=== PATIENT | male | born 1950 | race Hispanic/Latino ===

== ENCOUNTER 2018-04-09 17:01 | Inpatient (IN) | payer MEDICARE, OTHER ==
[2018-04-09 18:02] LABS: CKMB 5.3 ng/mL (0-6.6); Troponin I 0.054 ng/mL (< 0.028)
--- NOTE | 2018-04-09 18:14 | PDOC.FPRHP ---
- History of Present Illness Chief Complaint: Nausea, malaise History of Present Illness: Patient transferred from [facility] ED after seen by PCP Dr. Arias in clinic. Reports N/V, "feeling bad all over". Patient says symptoms began Monday. Has had decreased PO intake and urine output since that time. Denies dysuria, cough , difficulty breathing, CP, abdominal pain. Reports subjective fever and watery diarrhea x3. Cirrhosis with weekly paracentesis on Fridays in [place]. Last one done Monday. Was reportedly tachycardic at that time but refused to go to ED. ED Course: 2.5 L bolus, vanc, zosyn - Allergies/Adverse Reactions Allergies Allergy/AdvReac Type Severity Reaction Status Date / Time No Known Allergies Allergy Verified 04/09/18 23:42 - Home Medications Medication Instructions Recorded Confirmed Type Doxazosin [Cardura] 2 mg PO HS 04/10/18 04/10/18 History Ferrous Sulfate 324 mg PO DAILY 04/10/18 04/10/18 History Furosemide 04/10/18 History Furosemide 40 mg PO DAILY 04/10/18 04/10/18 History Gabapentin 300 mg PO HS 04/10/18 04/10/18 History Insulin Glargine,Hum.Rec.Anlog 15 units SQ QAM 04/10/18 04/10/18 History [Lantus] Lactulose 30 ml PO TID 04/10/18 04/10/18 History Metoprolol Tartrate [Lopressor] 25 mg PO BID 04/10/18 04/10/18 History Pantoprazole Sodium 40 mg PO HS 04/10/18 04/10/18 History Spironolactone 50 mg PO DAILY 04/10/18 04/10/18 History sitaGLIPtin Phosphate [Januvia] 25 mg PO DAILY 04/10/18 04/10/18 History - History PMHx: cirrhosis with ascites, Hepatitis C s/p treatment, hepatocellular carcinoma, CVA in 1995, T2DM on insulin, HTN, CKD PSHx: TURP, ear, tonsils, pacemaker FHx: mother and grandma cirrhosis Social: Quit alcohol and tobacco in 2016. 16 pack year hx. Previous drug use "long time ago" - Review of Systems General: reports: fever/chills, weight/appetite/sleep changes, fatigue ENT: denies: nasal congestion, rhinorrhea Respiratory: denies: cough, shortness of breath Cardiovascular: denies: chest pain, palpitation, edema Gastrointestinal: reports: nausea, vomiting, diarrhea. denies: abdominal pain Genitourinary: denies: dysuria, discharge Skin: denies: rashes, lesions Musculoskeletal: denies: pain, tenderness Neurological: reports: weakness. denies: syncope - Vital signs BP: 102/87 HR: 98 RR: 22 Tmax: 97.5 Pox: 98% Wt: 74 kg - Physical Exam Constitutional: other (general malaise, spitting up in bag) HEENT: normocephalic and atraumatic, PERRLA, EOMI, conjunctiva clear, MMM, oropharynx clear Neck: FROM, trachea midline Heart: RRR, normal S1/S2, no edema, other (tachycardia) Lungs: CTAB, no respiratory distress, good air movement Abdomen: non-tender, bowel sounds present, other (ascited with + fluid wave) Musculoskeletal: normal structure, normal tone Neurological: no focal deficit Skin: no rash/lesions, good turgor, capillary refill <2 seconds Heme/Lymphatic: no unusual bruising or bleeding FMR H&P: Results - Labs Lab results: Lactic Acid 2.4 mmol/L (0.5-2.2) H 04/09/18 17:28 CK-MB (CK-2) 5.3 ng/mL (0-6.6) 04/09/18 17:28 FMR H&P: A/P - Problem List (1) Sepsis Current Visit: Yes Status: Acute Code(s): A41.9 - SEPSIS, UNSPECIFIED ORGANISM Qualifiers: Sepsis type: Streptococcus group A Qualified Code(s): A40.0 - Sepsis due to streptococcus, group A (2) UTI (urinary tract infection) Current Visit: Yes Status: Acute (3) Hypovolemia Current Visit: Yes Status: Acute Code(s): E86.1 - HYPOVOLEMIA (4) ANDREAS (acute kidney injury) Current Visit: Yes Status: Acute Code(s): N17.9 - ACUTE KIDNEY FAILURE, UNSPECIFIED (5) CKD (chronic kidney disease) Current Visit: Yes Status: Acute Code(s): N18.9 - CHRONIC KIDNEY DISEASE, UNSPECIFIED (6) Hyperkalemia Current Visit: Yes Status: Acute Code(s): E87.5 - HYPERKALEMIA (7) Hyponatremia Current Visit: Yes Status: Acute Code(s): E87.1 - HYPO-OSMOLALITY AND HYPONATREMIA (8) Normocytic anemia Current Visit: Yes Status: Acute Code(s): D64.9 - ANEMIA, UNSPECIFIED (9) Cirrhosis of liver Current Visit: Yes Status: Acute Code(s): K74.60 - UNSPECIFIED CIRRHOSIS OF LIVER (10) Insulin dependent diabetes mellitus Current Visit: Yes Status: Acute Code(s): E11.9 - TYPE 2 DIABETES MELLITUS WITHOUT COMPLICATIONS; Z79.4 - 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 Sepsis 2/2 likely UTI - tachycardia, tachypnea - considering no resp complaints, neg CXR, no abdominal pain, afebrile, no leukocytosis, SBP less likely, UTI most likely source at this time. Patient with N/V/D, gastroenteritis with volume depletion could be etiology as well. - will get abdominal u/s for further evaluation - lactic acidosis improving, 3.2->2.46 - s/p 2.5 L fluid resuscitation. continue IVF LR @ 100. Will use caution considering h/o cirrhosis - given vanc/zosyn in [facility] ED (04/09) - Will start rocephin in am (04/10) - Ucx, Bcx in [facility] pending - procalcitonin pending Hypovolemia - treatment as above ANDREAS on CKD - Cr 4.3 on admission (2.8 on 02/06) - IVF as above - monitor on BMP for improvement - hold home lasix - caution with nephrotoxic meds Hyperkalemia - hold home spironolactone - ordered kayexalate - no EKG changes - recheck in am Hyponatremia - at baseline during previous admissions - am BMP Normocytic anemia - Hgb 10.9 - on iron supplements at home Cirrhosis s/p treatment for Hep C - history of HCC - gets weekly paracentesis on Fridays in [place] - INR 1.4 IDDM2 - accuchecks, SSI - On januvia and lantus 15 qam at home HTN - on metoprolol at home. patient tachycardic, will continue Diet: CC Ppx: SCDs Code: FULL Dispo: admit to telemetry, inpatient FMR H&P: Upper Level - Pertinent history 68 yo HM with a PMH of HCV/HCC cirrhosis and HTN presenting for malaise over the last week. Pt is noted to go to [place] for weekly paracenteses and was found to be tachycardic during his last session on Friday 04/06. He was urged to go to the ER at that time but refused. Pt visited PCP's office this AM for acute visit with similar complaints and was found to be tachycardic to 120s with concern for acute infection. Pt was sent to [facility] ER and subsequently transferred here for higher level of care. Pt c/o muscle aches, malaise, nausea, vomiting, palpitations, and poor PO intake. Pt received 2L of NS and vancomycin & zosyn at outside ER. - Pertinent findings Gen: well developed in NAD CV: tachycardic, regular rhythm Resp: CTAB Abd: mild distension with fluid wave, NTTP - Plan Date/Time: 04/09/181813 I, Rogelio Quinteros MD PGY3, have evaluated this patient and agree with findings/ plan as outlined by buyer internship resident. Pertinent changes/additions are listed here. 1. Sepsis 2/2 UTI -Pt presented with tachycardia and tachypnea and UA concerning for UTI. Blood and urine cultures obtained at outside facility. PCP was also initially concerned about SBP with pt's history of cirrhosis and weekly paracenteses. -Will transition pt's abx coverage to Ceftriaxone. -Obtain procalcitonin. -Trend lactic acid which has already improved after initial fluid resuscitation. -Obtain abdominal US to further assess ascites and possibility of paracentesis. -Continue with gentle IVF. 2. Moderate hypovolemia 2/2 above -IVF. Consider administration of albumin if pt does not improve. 3. ANDREAS on CKD3 2/2 number 2 -Likely prerenal due to above. -IVF and consider albumin if GFR does not improve. 4. Lactic acidosis 2/2 above -per above Home medications will be continued for chronic medical conditions. FULL code PPx: SCDs for VTE, no GI indicated disposition: Admit to inpatient telemetry for anticipated length of stay greater than two midnights, pending clinical course. Attending Addendum - Attending Addendum Date/Time: 04/09/18 2068 I personally evaluated the patient and discussed the management with Dr. Berg I agree with the History, Examination, Assessment and Plan documented above with any addition or exceptions noted below- 68 yo old male with h/o cirrhosis, DM, HTN presented c/o malaise since last Monday. He has had some N/V/D since then. Poor appetite. Has weekly paracenteses in [place] and was sent to ER then but refused admission at that. Followed up with PCP today who sent him to ER for evalaution and now subsequent admission. Denies any URI symptoms, abd pain. Denies any ill contacts. PMH/PSH/All/Meds reviewed and agree with resident's documentation. T97.5, BP 102/87, P98 RR 22 98% on RA Exam repeated by me and significant for abd- nontender; (+) fluid wave; Lungs- CTA b/l; CV- tachycardic. Labs: WBC=6.0, H/H=10.9/36, Kpd=567, Pf=904, K=5.5, Yc=100, CO2=18 , BUN/Cr=58/4.38, Lhdj=027, AST/ALT=37/13; lactic acid= 3.2=>2.4=>2.0. U/A= sm blood, sm leuko est, WBC=21-50, 3+ bacteria A/P: 1) Sepsis secondary to UTI- Admit to tele. Continue Vanc and Zosyn. Blood and urine cultures pending. 2) ANDREAS - received bolus in ER; monitor urine output and recheck labs in AM. 3) DM- continue home meds; monitor accuchecks.
[2018-04-09] MEDS ORDERED: Ondansetron PF 4 MG/2 ML Vial ONE (20:34)
[2018-04-09 20:42] LABS: Troponin I 0.058 ng/mL (< 0.028)
[2018-04-09] MEDS ORDERED: HumaLOG 300 UNITS/3 ML VIAL SC PRN (23:12)
[2018-04-09] MEDS ORDERED: Ondansetron ODT 4 MG TAB PO PRN (23:12)
[2018-04-09] MEDS ORDERED: Dextrose 50% Abboject 50 ML SYRINGE SLOW IVP PRN (23:12)
[2018-04-09] MEDS ORDERED: Acetaminophen 325 MG TAB PO PRN (23:12)
[2018-04-09] MEDS ORDERED: Dextrose 5% in Water 1,000 ML IV PRN (23:12)
[2018-04-09] MEDS ORDERED: Lactated Ringer's 1,000 ML IV SCH (23:12)
[2018-04-09] MEDS ORDERED: Ondansetron PF 4 MG/2 ML Vial IVP PRN (23:12)
[2018-04-09 23:31] LABS: Troponin I 0.059 ng/mL (< 0.028)
[2018-04-10] MEDS: Lactated Ringer's 1,000 ML IV SCH ×6 (00:29→20:42)
[2018-04-10 06:08] LABS: Anion Gap 18 mmol/L (10-20); BUN (Urea Nitrogen) 58 mg/dL (8.4-25.7); Calc. Creatinine Clearance 18 mL/min (70-130); Calcium 8.3 mg/dL (7.8-10.44); Carbon Dioxide 17 mmol/L (23-31); Chloride 106 mmol/L (98-107); Estimated GFR-MDRD 15; Glucose 91 mg/dL (80-115); Potassium 4.7 mmol/L (3.5-5.1); Sodium 136 mmol/L (136-145)
--- NOTE | 2018-04-10 06:30 | PDOC.FM ---
- Subjective Subjective: Mr. Ryan is resting comfortably in bed, he denies pain or SOB. - Objective Vital Signs & Weight: Vital Signs (12 hours) Temp Pulse Resp BP BP Pulse Ox 04/10/18 04:00 97.5 F L 129 H 20 107/76 96 04/09/18 23:15 97.7 F 125 H 22 H 132/98 H 94 L Weight Weight 72.631 kg Result Diagrams: 04/10/18 05:09 04/10/18 05:09 <Margarito Foley - Last Filed: 04/10/18 08:13> - Objective Vital Signs & Weight: Vital Signs (12 hours) Temp Pulse Resp BP Pulse Ox 04/10/18 08:00 97.8 F 18 L 18 120/82 98 Weight Admit Weight 72.631 kg Weight 72.631 kg I&O: 04/09/18 04/10/18 04/11/18 06:59 06:59 06:59 Intake Total 460 Balance 460 Result Diagrams: 04/10/18 05:09 04/10/18 05:09 <Radha Arias - Last Filed: 04/10/18 18:38> Phys Exam - Physical Examination Constitutional: NAD HEENT: moist MMs Respiratory: no wheezing, no rales, no rhonchi Cardiovascular: RRR, no significant murmur, no rub Gastrointestinal: soft, non-tender distended abdomen, +fluid wave Musculoskeletal: no edema Neurological: moves all 4 limbs Psychiatric: normal affect Skin: no rash <Margarito Foley - Last Filed: 04/10/18 08:13> Dx/Plan (1) ANDREAS (acute kidney injury) Code(s): N17.9 - ACUTE KIDNEY FAILURE, UNSPECIFIED Status: Acute (2) CKD (chronic kidney disease) Code(s): N18.9 - CHRONIC KIDNEY DISEASE, UNSPECIFIED Status: Acute (3) HTN (hypertension) Code(s): I10 - ESSENTIAL (PRIMARY) HYPERTENSION Status: Acute (4) Hyperkalemia Code(s): E87.5 - HYPERKALEMIA Status: Acute (5) Hyponatremia Code(s): E87.1 - HYPO-OSMOLALITY AND HYPONATREMIA Status: Acute (6) Hypovolemia Code(s): E86.1 - HYPOVOLEMIA Status: Acute (7) Sepsis Code(s): A41.9 - SEPSIS, UNSPECIFIED ORGANISM Status: Acute Qualifiers: Sepsis type: Streptococcus group A Qualified Code(s): A40.0 - Sepsis due to streptococcus, group A (8) UTI (urinary tract infection) Status: Acute - Plan Plan: Sepsis 2/2 likely UTI - tachycardia, tachypnea - considering no resp complaints, neg CXR, no abdominal pain, afebrile, no leukocytosis, SBP less likely, UTI most likely source at this time. Patient with N/V/D, gastroenteritis with volume depletion could be etiology as well. - will get abdominal u/s for further evaluation - lactic acidosis improving, 3.2->2.46 - s/p 2.5 L fluid resuscitation. continue IVF LR @ 100. Will use caution considering h/o cirrhosis - given vanc/zosyn in [facility] ED (04/09) - Will start rocephin in am (04/10) - Ucx, Bcx in [place] pending - procalcitonin pending Hypovolemia - treatment as above - slow bolus, consider albumin infusion ANDREAS on CKD - Cr 4.3 on admission (2.8 on 02/06) - IVF as above - monitor on BMP for improvement - hold home lasix - caution with nephrotoxic meds Hyperkalemia, resolved - hold home spironolactone, ordered kayexalate - no EKG changes - monitor Hyponatremia - at baseline during previous admissions - am BMP Normocytic anemia - Hgb 10.9 - on iron supplements at home Cirrhosis s/p treatment for Hep C - history of HCC - gets weekly paracentesis on Fridays in [place] - INR 1.4 IDDM2 - accuchecks, SSI - On januvia and lantus 15 qam at home HTN - on metoprolol at home. patient tachycardic, will continue Diet: CC Ppx: SCDs Code: FULL Dispo: admit to telemetry, inpatient <Margarito Foley - Last Filed: 04/10/18 08:13> Attending Addendum - Attending Addendum Date/Time: 04/10/18 0967 I personally evaluated the patient and discussed the management with Dr. Foley. I agree with the History, Examination, Assessment and Plan documented above with any addition or exceptions noted below. The patient states that he is feeling a little better today. He is less tired. Will continue IV fluids. Pt with ANDREAS on CKD. Appreciate nephrology recs. Will monitor fluid status carefully. Tread creatinine. Awaiting cultures <Radha Arias - Last Filed: 04/10/18 18:38>
[2018-04-10 06:42] LABS: #Eosinphils 0.2 thou/uL (0.0-0.7); #Lymphocytes 0.5 thou/uL (1.20-3.40); #Monocytes 0.5 thou/uL (0.11-0.59); %Eosinophils 3.2 % (0.0-10.0); %Lymphocytes 10.4 % (21.0-51.0); %Monocytes 8.7 % (0.0-10.0); %Neutrophils 77.7 % (42.0-75.0); Anisocytosis SLIGHT = 6-15 cells (100X) (0-5/hpf); Hemoglobin 10.5 g/dL (14.0-18.0); MDiff Complete? YES; Mean Corpuscular HGB CONC 30.8 g/dL (32.0-36.0); Mean Corpuscular Volume 84.4 fL (78.0-98.0); Mean Platelet Volume 10.4 fL (7.4-10.4); PLT Morphology Comment Appears Decreased; Platelet Count 90 thou/uL (130-400); RBC Distribution Width 16.7 % (11.5-14.5); Red Blood Cell (RBC) Count 4.04 mill/uL (4.70-6.10); White Blood Cell (WBC) Count 5.2 thou/uL (4.8-10.8)
[2018-04-10] MEDS ORDERED: Furosemide 40 MG TAB PO SCH (09:00)
--- NOTE | 2018-04-10 09:03 | ULT ---
ABDOMEN ULTRASOUND: HISTORY: Nausea. Vomiting. Bloating. Cirrhosis. COMPARISON: None. TECHNIQUE: Utilizing a multihertz transducer, sonographic imaging of the abdomen is performed in the longitudina l and transverse plane. FINDINGS: There is evidence of ascites. Suboptimal evaluation of the IVC, aorta. Visualized pancreatic parenchyma is unremarkable.. There is heterogeneous echotexture of the liver with questionable nodularity of the hepatic margin. Correlate for cirrhotic changes. No obvious masses or intrahepatic biliary dilatation. Evaluation i s limited by overall hepatic heterogeneity. Main portal vein is patent. Right hepatic lobe measures 12.2 cm. Nodularity of the right kidney is nonspecific. Nonobstructing echogenic focus in the mid right middl e cortex measuring 0.5 cm. The right kidney measures 9.8 x 4.8 x 3.9 cm. There is no hydronephrosis . There is diffuse left renal cortical thinning. No hydronephrosis. The left kidney measures 4.2 x 8.6 x 4.3 cm. No sonographic evidence of cholelithiasis. Gallbladder wall thickness is at the upper limits of norm al. There is evidence of pericholecystic fluid; however, the presents of fluid may be secondary to g eneralized ascites. Negative Phillips's sign is reported. Common bile duct diameter is 0.6 cm. The spleen has a normal echotexture measuring 12.6 cm. There is perisplenic fluid. There is evidenc e for a small right-sided pleural effusion. IMPRESSION: 1. Bilateral renal cortical thinning. No evidence of hydronephrosis. 2. No definite sonographic evidence of cholecystitis. 3. Nodularity of the liver compatible with cirrhotic change. 4. Evidence of small amounts of ascites in the abdomen. 5. Small right-sided pleural effusion suspected. POS: [facility]
[2018-04-10] MEDS: Ferrous Sulfate 325 MG TAB PO SCH (10:02)
[2018-04-10] MEDS: Alogliptin 6.25 MG TAB PO SCH (10:02)
[2018-04-10] MEDS: Insulin Glargine 15 UNITS in Pre-Filled Syringe 1 EACH SC SCH (10:03)
[2018-04-10] MEDS: Metoprolol Tartrate 25 MG TAB PO SCH ×2 (10:04→20:38)
[2018-04-10] MEDS: cefTRIAXone\\ROCEPHIN 1 GM in Sodium Chloride 0.9% 100 ML IVPB SCH (10:05)
--- NOTE | 2018-04-10 10:50 | CON ---
DATE OF CONSULTATION: 04/10/2018 CONSULTING PHYSICIAN: . REASON FOR CONSULTATION: Acute kidney injury. REASON FOR ADMISSION: Not feeling well. HISTORY OF PRESENT ILLNESS: This is a 68-year-old male with a history of cirrhosis, hepatit is C, type 2 diabetes, hypertension, CKD, came to the hospital with not feeling well and was found to have possible sepsis and being treated. Nephrology consult for acute kidney injury. His creatinine runs usually around 1.7-2, was found to be 4.3, better to 4.06 with hydration. Patient has also had a history of cirrhosis and ascites and concerned about that. No shortness of breath reported. No n ausea, vomiting, chest pain reported. PAST MEDICAL HISTORY: Positive for cirrhosis, hepatitis C, hepatocellular carcinoma, CVA, type 2 seng betes, hypertension, and chronic kidney disease. PAST SURGICAL HISTORY: TURP, ear surgery, tonsillectomy, pacemaker placement. HOME MEDICATIONS: Include Januvia, spironolactone, Lantus, ferrous sulfate, Cardura, gabapentin, morris toprazole, furosemide, metoprolol. ALLERGIES: No known drug allergies. SOCIAL HISTORY: No smoking, alcohol, drugs. FAMILY HISTORY: No history of kidney disease. REVIEW OF SYSTEMS: The following complete review of systems was negative, unless otherwise mentione d in the HPI or below: Constitutional: Weight loss or gain, ability to conduct usual activities. S kin: Rash, itching. Eyes: Double vision, pain. ENT/Mouth: Nose bleeding, neck stiffness, pain, t enderness. Cardiovascular: Palpitations, dyspnea on exertion, orthopnea. Respiratory: Shortness o f breath, wheezing, cough, hemoptysis, fever, or night sweats. Gastrointestinal: Poor appetite, abd ominal pain, heartburn, nausea, vomiting, constipation, or diarrhea. Genitourinary: Urgency, freque ncy, dysuria, nocturia. Musculoskeletal: Pain, swelling. Neurologic/Psychiatric: Anxiety, depress ion. Allergy/Immunologic: Skin rash, bleeding tendency. PHYSICAL EXAMINATION: GENERAL: This is a thin-built male in no apparent distress. VITAL SIGNS: Temperature 97.8, pulse 90, respiratory rate 18, blood pressure 120/82. HEENT: Atraumatic, normocephalic. Oral mucosa is moist. NECK: Supple, no masses. CARDIOVASCULAR: S1 and S2 heard. Rate and rhythm regular. RESPIRATORY: Clear. GASTROINTESTINAL: Abdomen is soft. MUSCULOSKELETAL: A 1+ edema. DERMATOLOGIC: No skin rash. NEUROLOGIC: Alert and awake. PSYCHIATRIC: Mood and affect. LABORATORY: Hemoglobin is 10.5, potassium is 4.7, BUN is 58, creatinine is 4.06. ASSESSMENT AND PLAN: 1. Acute kidney injury on chronic kidney disease, stage 3, most likely from sepsis. Creatinine seem s to be better. I agree with avoiding nephrotoxins and holding spironolactone and diuretics and gent ly hydrate if tolerated. Could reduce later this evening. Continue antibiotics. 2. Edema, controlled. 3. Hypertension. 4. Mild anemia, most likely from cirrhosis . 5. Hepatorenal syndrome. Continue supportive care, avoid nephrotoxins. We will follow. No acute indication for dialysis. Thank you for the consult.
[2018-04-10] MEDS ORDERED: Metoprolol Tartrate 5 MG/5 ML VIAL IVP PRN (14:36)
[2018-04-10] MEDS: Gabapentin 300 MG CAP PO SCH (20:38)
[2018-04-10] MEDS ORDERED: Doxazosin 2 MG TAB PO SCH (21:00)
--- NOTE | 2018-04-10 21:53 | CON ---
DATE OF CONSULTATION: 04/10/2018 This is in addition to the note dictated by Stephanie Tello D.O. REASON FOR CONSULTATION: Tachycardia. HISTORY OF PRESENT ILLNESS: Mr. Ryan is a 69-year-old man. He was admitted to the hospital after he was found to be tachycardic. The patient was not aware of his heart racing, but his heart rate was found to be about 130 beats per minute and he was referred here for evaluation. He said he did not feel bad. No chest pain or pressure, no heaviness or squeezing. PAST MEDICAL HISTORY: The patient is unable to give much history, but we were able to piece together some of the following information. The patient has had a pacemaker placed some time between 2015 an d now. Looking at the previous chest x-rays, it was not present in 2016 and is present on this admis naila. He said it was placed at [facility] in [place]. He does not know the physician's name. He has a history of weak heart muscle with normal heart arteries on cardiac catheterization according to the patient. He was told that he may need heart surgery, but it would be "too high of a risk." He does not know w hat the surgery was being contemplated or advised. He is uncertain about all of that. He says he does recall being told that he has no coronary artery disease. The patient has a history of cirrhosis. He said he stopped drinking and smoking in 2015 when he was found to have a weak heart muscle. He has no chest pain or pressure. REVIEW OF SYSTEMS: Constitutional: No significant weight gain or loss. Vision: No changes. Heari ng: No changes. Pulmonary: No cough or wheezing. Gastrointestinal: No nausea, vomiting, diarrhea . Skin: No rashes. Neurologic: No unilateral weakness or numbness. Psychiatric: No unusual depr ession or anxiety. Hematologic: No unusual bruising. Genitourinary: No burning with urination. H e does have intermittent drainage of ascites. MEDICATIONS: He takes metoprolol, apparently from the medicine that he has with him is metoprolol 25 mg twice a day, recently increased to 50 mg twice a day, but did not help with heart rate. FAMILY HISTORY: Negative for heart disease at a young age. PHYSICAL EXAMINATION: GENERAL: This is a pleasant 68-year-old man, resting comfortably, in no distress. VITAL SIGNS: Blood pressure 120/80, pulse 130. It is regular. HEENT: Eyes, sclerae nonicteric. Mouth, mucous membranes moist. NECK: Supple, no lymphadenopathy. LUNGS: Clear. No wheezing, rales or rhonchi. CARDIAC: He is tachycardic. There is no murmur, rub or gallop. ABDOMEN: Soft, nontender, no hepatosplenomegaly. He is mildly distended. EXTREMITIES: No clubbing or cyanosis. There is no edema. PERTINENT LABORATORY AND X-RAY FINDINGS: The INR in 07/2017 was 1.4, creatinine is 4.06. Potassium is 4.7, it was 5.5 yesterday. The EKG reveals what sometimes looks like atrial fibrillation with a ventricular paced rhythm, some o ther type of atrial arrhythmia, atrial sensing, ventricular pacing. Chest x-ray shows cardiomegaly w ith some pulmonary vascular congestion. ASSESSMENT: 1. Tachycardia, most likely due to underlying atrial dysrhythmia. 2. Suspect cardiomyopathy. 3. Normal coronary arteries per patient. 4. Renal failure apparently taken spironolactone as an outpatient. PLAN: 1. Interrogate the device, consideration for reprogramming the VVI. 2. It will be problematic to cardiovert as he is unreliable to take anticoagulants and also severe l iver disease. 3. Echocardiogram once the heart rate is better controlled. 4. Avoid spironolactone. 5. Likely, we will use carvedilol long-term. Further care dictated by hospital course.
[2018-04-11 05:55] LABS: INR-International Normal Ratio 1.5
[2018-04-11 06:04] LABS: #Basophils 0.1 thou/uL (0.0-0.2); #Eosinphils 0.2 thou/uL (0.0-0.7); #Lymphocytes 0.5 thou/uL (1.20-3.40); #Monocytes 0.4 thou/uL (0.11-0.59); #Neutrophils 2.2 thou/uL (1.40-6.50); %Basophils 1.6 % (0.0-1.0); %Eosinophils 6.3 % (0.0-10.0); %Lymphocytes 13.9 % (21.0-51.0); %Monocytes 10.8 % (0.0-10.0); %Neutrophils 67.4 % (42.0-75.0); Mean Corpuscular Hemoglobin 25.7 pg (27.0-31.0); Mean Corpuscular Volume 85.7 fL (78.0-98.0); Mean Platelet Volume 10.9 fL (7.4-10.4); Platelet Count 78 thou/uL (130-400); RBC Distribution Width 16.9 % (11.5-14.5); Red Blood Cell (RBC) Count 3.51 mill/uL (4.70-6.10); White Blood Cell (WBC) Count 3.3 thou/uL (4.8-10.8)
[2018-04-11 06:11] LABS: Anion Gap 12 mmol/L (10-20); BUN (Urea Nitrogen) 60 mg/dL (8.4-25.7); Calc. Creatinine Clearance 19 mL/min (70-130); Calcium 8.1 mg/dL (7.8-10.44); Carbon Dioxide 21 mmol/L (23-31); Chloride 104 mmol/L (98-107); Estimated GFR-MDRD 16; Glucose 112 mg/dL (80-115); Iron 122 ug/dL (65-175); Iron Binding Capacity, Total 350 mcg/dL (261-462); Potassium 3.9 mmol/L (3.5-5.1); Sodium 133 mmol/L (136-145)
--- NOTE | 2018-04-11 06:56 | PDOC.FM ---
- Subjective Subjective: Mr. Ryan is resting comfortably in bed, he denies abdominal pain, SOB or CP - Objective Vital Signs & Weight: Vital Signs (12 hours) Temp Pulse Resp BP Pulse Ox 04/11/18 04:00 97.8 F 82 16 91/55 L 97 04/10/18 20:35 98.1 F 82 16 107/54 L 98 Weight Admit Weight 72.631 kg Weight 72.631 kg I&O: 04/09/18 04/10/18 04/11/18 06:59 06:59 06:59 Intake Total 460 Output Total 3 Balance 460 -3 Result Diagrams: 04/11/18 05:36 04/11/18 05:36 <Margarito Foley - Last Filed: 04/11/18 07:53> - Objective Vital Signs & Weight: Vital Signs (12 hours) Temp Pulse Resp BP Pulse Ox 04/11/18 08:00 95 04/11/18 07:20 97.9 F 82 16 102/61 95 04/11/18 04:00 97.8 F 82 16 91/55 L 97 Weight Admit Weight 72.631 kg Weight 75.098 kg I&O: 04/10/18 04/11/18 04/12/18 06:59 06:59 06:59 Intake Total 460 1305 Output Total 3 Balance 460 1302 Result Diagrams: 04/11/18 05:36 04/11/18 05:36 <Radha Arias - Last Filed: 04/11/18 11:37> Phys Exam - Physical Examination Constitutional: NAD HEENT: moist MMs Neck: no JVD Gastrointestinal: soft, non-tender distended Musculoskeletal: no edema Neurological: moves all 4 limbs Psychiatric: normal affect Skin: no rash <Margarito Foley - Last Filed: 04/11/18 07:53> Dx/Plan (1) ANDREAS (acute kidney injury) Code(s): N17.9 - ACUTE KIDNEY FAILURE, UNSPECIFIED Status: Acute (2) CKD (chronic kidney disease) Code(s): N18.9 - CHRONIC KIDNEY DISEASE, UNSPECIFIED Status: Acute (3) HTN (hypertension) Code(s): I10 - ESSENTIAL (PRIMARY) HYPERTENSION Status: Acute (4) Hyperkalemia Code(s): E87.5 - HYPERKALEMIA Status: Acute (5) Hyponatremia Code(s): E87.1 - HYPO-OSMOLALITY AND HYPONATREMIA Status: Acute (6) Hypovolemia Code(s): E86.1 - HYPOVOLEMIA Status: Acute (7) Sepsis Code(s): A41.9 - SEPSIS, UNSPECIFIED ORGANISM Status: Acute Qualifiers: Sepsis type: Streptococcus group A Qualified Code(s): A40.0 - Sepsis due to streptococcus, group A (8) UTI (urinary tract infection) Status: Acute - Plan Plan: Sepsis 2/2 likely UTI - tachycardia, tachypnea - considering no resp complaints, neg CXR, no abdominal pain, afebrile, no leukocytosis, SBP less likely, UTI most likely source at this time. Patient with N/V/D, gastroenteritis with volume depletion could be etiology as well. -abdominal u/s not suspicious for SBP - lactic acidosis improving, 3.2->2.46 - s/p 2.5 L fluid resuscitation. DC IVF - given vanc/zosyn in [place] ED (04/09) - continue rocephin - Ucx, Bcx in [place] pending - procalcitonin neg Atrial dysrrhythmia - cardiology consulted, interrogating pacemaker - echo when stable, cont metoprolol - ablation today Hypovolemia, resolved - monitor ANDREAS on CKD - Cr 4.3 on admission (2.8 on 02/06), down trending - monitor on BMP for improvement - hold home lasix - caution with nephrotoxic meds Hyperkalemia, resolved - hold home spironolactone, ordered kayexalate - no EKG changes - monitor Hyponatremia - at baseline during previous admissions - am BMP Normocytic anemia - Hgb 10.9 - on iron supplements at home Cirrhosis s/p treatment for Hep C - history of HCC - gets weekly paracentesis on Fridays in [place] - INR 1.4 IDDM2 - accuchecks, SSI - On januvia and lantus 15 qam at home HTN - on metoprolol at home. patient tachycardic, will continue Diet: CC Ppx: SCDs Code: FULL Dispo: interrogate pacemaker, continue abx, monitor for improvement <Margarito Foley - Last Filed: 04/11/18 07:53> Attending Addendum - Attending Addendum Date/Time: 04/11/18 1136 I personally evaluated the patient and discussed the management with Dr. oFley. I agree with the History, Examination, Assessment and Plan documented above with any addition or exceptions noted below. The patient is starting to feel better. Continuing IV antibiotics, waiting on culture results. Adjusting beta katrin for better rate control. Appreciate specialist recs. <Radha Arias - Last Filed: 04/11/18 11:37>
--- NOTE | 2018-04-11 07:59 | CON-2 ---
CARDIOLOGY CONSULTATION Dictated by Dr. Stephanie Tello on behalf of Dr. Argueta. DATE OF CONSULTATION: 04/10/2018 REASON FOR CONSULTATION: Tachycardia. HISTORY OF PRESENT ILLNESS: This is a 68-year-old male who initially presented to [facility] at the request of his primary care physician, Dr. Arias. The patient was reporting nausea, vomiting, and generally not feeling well. He states the symptoms began on Monday and he started to have decreased p.o. intake and decreased urine output since that time. He denied any cough, shortness of breath, chest pain or abdominal pain at that time, but he did say he is having subjective fevers and watery diarrhea for the past 3 days. During the consultation visit today, the patient states that he only went over to the emergency department because his primary care physician requested he do so particular due to his heart rate which was noted to be elevated. Of note, the patient does have a history of cirrhosis and gets weekly paracenteses. His last paracentesis was Monday in [place] and he was reportedly tachycardic at that time, but refused to go to the emergency department. During evaluation today, patient is asymptomatic in regards to chest pain or palpitations. The patient states that he is mildly short of breath; however, the shortness of breath has improved since his admission into the hospital. He states that he has been short of breath with exertion over the past couple of years. He was seen within the last year in [place] and had a pacemaker placed for "a weak heart." The patient states that he also had a cardiac catheterization done at that time and did not have any stents placed and was told that he did not have any blockages. Patient did mention the fact that they wanted to do some sort of surgery, but there was a fifty-fifty chance he would make if he decided to undergo that surgery. The patient is uncertain of what the surgery was for and he cannot remember the name of the physician who was to perform the surgery. The patient sees a dough mixer helper in [place]. He had his pacemaker placed at [facility] in [place]. The patient states that he takes his medication on occasion, but is not very consistent with taking them. Patient thinks his last echocardiogram was in the last 6 months, but he is uncertain of the results of that echocardiogram. PAST MEDICAL HISTORY: 1. Cirrhosis 2/2 alcohol abuse. 2. CVA in 1995. 3. Diabetes mellitus type 2. 4. Hypertension. 5. Noncompliance with medications. PAST SURGICAL HISTORY: 1. Weekly paracenteses for cirrhosis. 2. Pacemaker implantation approximately one year ago. SOCIAL HISTORY: The patient is a former drug user, tobacco user, and alcohol user. He says he quit drinking alcohol in 2016, at which time he also quit smoking cigarettes. PHYSICAL EXAMINATION: VITAL SIGNS: Temperature 97.8, pulse 129, respiratory rate 20, oxygen saturation 96% on room air, blood pressure 107/76. GENERAL: Patient is alert and oriented x3, in no acute distress. CARDIOVASCULAR: Tachycardic. No murmurs noted on exam. RESPIRATORY: Mild bibasilar crackles bilaterally. No wheezing noted on exam. EXTREMITIES: Trace bilateral lower extremity edema. 2+ pedal pulses. SKIN: Warm and dry. NEUROLOGIC: No focal deficits. LABORATORY FINDINGS: Reviewed. CBC reveals a white blood cell count of 5.2, hemoglobin 10.5, hematocrit 34.1, platelet count of 90. CMP reveals sodium 136 , potassium 4.7, chloride 106, bicarbonate 17, BUN 58, creatinine 4.06, GFR 15, glucose 91, calcium 8.3. CK-MB was 5.3. Troponin went from 0.054 to 0.058, 0.059. Procalcitonin noted to be 0.16. IMAGING: Chest x-ray showed enlarged heart with left-sided pacemaker device placed. Tortuous aorta was noted. The lungs are expanded without focal areas of consolidation, pneumothoraces, yolande pulmonary edema, or pleural effusions. EKG: Reviewed suspicious for atrial flutter versus atrial tachycardia. ASSESSMENT AND PLAN: 1. Atrial tachycardia versus atrial flutter: Patient currently on metoprolol tartrate 25 mg p.o. b.i.d. and additional 5 mg IV to be given. Additionally, the patient will have pacemaker interrogated. We may consider VVI pacing for right atrial tachycardia versus transesophageal echocardiography with cardioversion. Pending interrogation, we will decide on plan of action. 2. Heart failure s/p pacemaker: Does not look like the implantable device is a pacemaker/defibrillator, rather just a pacemaker. We will try to optimize diuresis and fluid resuscitation as patient also is in acute renal failure. The patient is being followed by Nephrology. Continue beta-katrin. 3. Acute renal failure. The patient being is being followed by Nephrology. Avoid nephrotoxic agents. 4. Diabetes mellitus. Continue home medication regimen and sliding scale as needed. Thank you for the consultation. We will continue to follow patient during hospitalization. [place]
[2018-04-11] MEDS: Metoprolol Tartrate 25 MG TAB PO SCH (08:37)
[2018-04-11] MEDS: Alogliptin 6.25 MG TAB PO SCH (08:37)
[2018-04-11] MEDS: Ferrous Sulfate 325 MG TAB PO SCH (08:38)
[2018-04-11] MEDS: cefTRIAXone\\ROCEPHIN 1 GM in Sodium Chloride 0.9% 100 ML IVPB SCH (08:41)
[2018-04-11] MEDS: Insulin Glargine 15 UNITS in Pre-Filled Syringe 1 EACH SC SCH (08:41)
--- NOTE | 2018-04-11 10:24 | PRG ---
DATE OF SERVICE: 04/11/2018 HISTORY: Mr. Ryan is doing well, no complaints. He feels well. PHYSICAL EXAMINATION: VITAL SIGNS: Blood pressure 102/61, pulse 80, it is regular. LUNGS: Clear. CARDIAC: Normal S1, normal S2. ABDOMEN: Soft, nontender. EXTREMITIES: No edema. PERTINENT LABORATORY: His creatinine is improved to 3.85. His hemoglobin has dropped to 9.0. The f erritin level is low at 27. ASSESSMENT: 1. Congestive heart failure, systolic, chronic, echocardiogram is pending. 2. Renal failure, improving, now stage 4. 3. Atrial arrhythmias. Dr. Pacheco saw the patient and thought it was likely an atrial tachycardia, pr obably left-sided. Would need to be anticoagulated and the patient is not a candidate for anticoagul ation. 4. Anemia at least some element of iron deficiency. PLAN: 1. Intravenous iron. 2. Beta blockade. 3. Pacemaker has been reprogrammed to avoid tracking the atrium and the atrial tachycardia. 4. Could resume some fluid at least 50 mL per hour.
--- NOTE | 2018-04-11 10:38 | CON ---
DATE OF CONSULTATION: 04/11/2018 REFERRING PHYSICIAN: Dr. Haim Argueta I am seeing Mr. Ryan at our [facility] telemetry floor as an electrophysiology consu ltant. His problems are: 1. Atrial tachycardia episodes. A. Occasional rapid ventricular rates are noted. 2. History of paroxysmal atrial fibrillation, poor candidate for anticoagulation due to liver and re nal insufficiency. 3. Chronic biventricular pacemaker in place, a Medtronic FRONT END TECHNICIAN-P device implanted in [place] in 7. Adequate function. 4. Admission with sepsis, possibly due to urinary tract infection, improving. 5. Acute on chronic renal insufficiency with creatinine 4.3. 6. History of liver cirrhosis due to hepatitis C as well as a hepatocellular carcinoma present. 7. Hyponatremia. 8. Anemia of chronic disease. 9. Hypertension and diabetes. ALLERGIES: None noted. MEDICATIONS AT HOME: Included metoprolol, Januvia, ferrous sulfate, doxazosin, lactulose, gabapentin , pantoprazole, furosemide, spironolactone, insulin. SUBJECTIVE: Mr. Ryan is here due to progressive malaise symptoms starting 3 days ago. He had decr eased p.o. intake and urine output. He denies dysuria, cough. No chest pains or abdominal pains wer e detected. He had watery diarrhea x3. He denies palpitations. No stroke-like symptoms, no neurolo gical deficits, no fever, chills, cough, no PND or orthopnea at this time. The rest of 12-point systems otherwise unremarkable. PAST MEDICAL HISTORY: As above, the patient has liver cirrhosis, he has weekly paracentesis on in [place]. Volume levels are reasonable. Most of the care he received was in [place] and [facility] ls unavailable, being requested. Echocardiogram is pending. SOCIAL HISTORY: The patient denies smoking, ETOH or drug abuse. FAMILY HISTORY: The patient's mother and grandmother having cirrhosis. OBJECTIVE: VITAL SIGNS: Blood pressure 102/61, heart rate 82, respiration 16, temperature 97.9 degrees Fahrenhe it. GENERAL: Alert and oriented man in no apparent distress. NECK: Supple. Jugular veins are not distended. CHEST: Coarse without crackles. CARDIOVASCULAR: Heart sounds are regular to rate and rhythm. No murmur or gallop. ABDOMEN: Benign. Bowel sounds positive. EXTREMITIES: Lower extremities with no edema, clubbing or cyanosis. The precordial pacing insertion site is well healed. DATABASE: The telemetry strips reveal ventricular pacing. Difficult to ascertain underlying rhythm, short runs of atrial tachycardia with RVR is seen. Interrogation of the pacemaker revealed a Medtronic FRONT END TECHNICIAN-P device with elevated battery voltage. Lead parameters are adequate. Episodic atrial tachycardia episodes are seen, antitachycardia pacing ther apies are off. Patient current programmed to VVIR. LABORATORY DATA: White count 3.3, hemoglobin 9, platelet count is 78. Sodium 133, potassium 3.9, BU N is 60, creatinine 3.85. ASSESSMENT AND PLAN: Mr. Ryan is a pleasant 68-year-old man, unfortunate, who is here with sepsis. During the acute sepsis he had occasional rapid rates. He has underlying atrial tachycardia episod es. My plan at this point, continue rate control, looks like it has improved. Continue metoprolol therap y already. I do not think he is a good candidate for anti-arrhythmic agents or ablation and he would refuse ablation anyway. We could consider atrial overdrive pacing for his underlying atrial tachycardia. Atrial tachycardia is ____, not rapid rates. I doubt it high thrombogenic pertinent, but he is a poor candidate for ora l anticoagulation for atrial fibrillation. I will ____ the atrial tachycardia episodes and consider turning ATP therapies on and if all else juno ls, even ablation could be a remote possibility as a last resort. We will follow with you. Discussed with Dr. Argueta.
[2018-04-11] MEDS ORDERED: Lactated Ringer's 1,000 ML IV SCH (10:45)
[2018-04-11] MEDS: Sodium Chloride 0.9% 1,000 ML IV SCH (11:51)
[2018-04-11] MEDS: Iron, Sodium Ferric Gluconate 250 MG in Sodium Chloride 0.9% 100 ML IVPB SCH (11:51)
[2018-04-11] MEDS ORDERED: Potassium Chloride 20 MEQ TAB PO SCH (12:00)
[2018-04-11] MEDS ORDERED: Carvedilol 6.25 MG TAB PO SCH (18:00)
--- NOTE | 2018-04-11 19:20 | PRG ---
DATE OF SERVICE: 04/11/2018 SUBJECTIVE: Patient was seen and examined at bedside and overnight events noted. Patient denies any shortness of breath or chest pain or palpitation. No history of nausea or vomitin g or diarrhea or fever or chills or cramps. OBJECTIVE: GENERAL: This is a well-built male in no acute distress VITAL SIGNS: Temperature 97.7, heart rate 87, respiratory rate 17, blood pressure 100/50. HEENT: Atraumatic, normocephalic, Oral mucosa is moist. NECK: Supple. CARDIOVASCULAR: S1, S2 heard, Rate and rhythm regular. RESPIRATORY: Clear to auscultation. GASTROINTESTINAL: Abdomen is soft. MUSCULOSKELETAL: No tenderness, No edema. DERMATOLOGIC: No skin rash. NEUROLOGIC: Alert and awake and oriented X3. No focal neurologic deficits. Moving all the extremit ies. PSYCHIATRIC: Mood and affect normal. LABORATORY DATA: Potassium is 3.9, BUN is 60, creatinine is . ASSESSMENT AND PLAN: 1. Acute kidney injury on chronic kidney stage 3 with improvement with hydration. Cautious hydratio n recommended given the history of cirrhosis. 2. History of cirrhosis. 3. . 4. Edema. 5. Hypertension, stable. 6. We will continue to monitor.
[2018-04-11] MEDS: Tamsulosin HCl 0.4 MG CAP PO SCH (20:21)
[2018-04-11] MEDS: Gabapentin 300 MG CAP PO SCH (20:21)
[2018-04-12] MEDS: Iron, Sodium Ferric Gluconate 250 MG in Sodium Chloride 0.9% 100 ML IVPB SCH (00:02)
[2018-04-12 05:14] LABS: #Eosinphils 0.2 thou/uL (0.0-0.7); #Lymphocytes 0.4 thou/uL (1.20-3.40); #Monocytes 0.3 thou/uL (0.11-0.59); #Neutrophils 2.2 thou/uL (1.40-6.50); %Basophils 0.4 % (0.0-1.0); %Lymphocytes 11.3 % (21.0-51.0); %Monocytes 10.1 % (0.0-10.0); %Neutrophils 71.2 % (42.0-75.0); Mean Corpuscular HGB CONC 29.9 g/dL (32.0-36.0); Mean Corpuscular Hemoglobin 25.8 pg (27.0-31.0); Mean Corpuscular Volume 86.4 fL (78.0-98.0); Mean Platelet Volume 10.7 fL (7.4-10.4); Platelet Count 75 thou/uL (130-400); RBC Distribution Width 16.9 % (11.5-14.5); Red Blood Cell (RBC) Count 3.47 mill/uL (4.70-6.10); White Blood Cell (WBC) Count 3.1 thou/uL (4.8-10.8)
[2018-04-12 05:19] LABS: Anion Gap 9 mmol/L (10-20); BUN (Urea Nitrogen) 55 mg/dL (8.4-25.7); Calc. Creatinine Clearance 22 mL/min (70-130); Calcium 7.8 mg/dL (7.8-10.44); Carbon Dioxide 22 mmol/L (23-31); Chloride 106 mmol/L (98-107); Estimated GFR-MDRD 18; Glucose 100 mg/dL (80-115); Sodium 133 mmol/L (136-145)
--- NOTE | 2018-04-12 07:08 | PDOC.FM ---
- Subjective Subjective: Mr. Ryan is sitting comfortably in bed, eating breakfast. denies SOB or CP. complaining of LE swelling - Objective Vital Signs & Weight: Vital Signs (12 hours) Temp Pulse Resp BP Pulse Ox 04/12/18 04:00 97.6 F 92 16 106/62 92 L 04/11/18 20:21 96 04/11/18 19:35 97.8 F 81 18 125/80 96 Weight Admit Weight 72.631 kg Weight 77.02 kg I&O: 04/10/18 04/11/18 04/12/18 06:59 06:59 06:59 Intake Total 460 1305 0 Output Total 3 Balance 460 1302 2069 Result Diagrams: 04/12/18 04:50 04/12/18 04:50 <Margarito Foley - Last Filed: 04/12/18 08:20> - Objective Vital Signs & Weight: Vital Signs (12 hours) Temp Pulse Resp BP BP BP Pulse Ox 04/12/18 17:42 117/62 04/12/18 15:11 97.5 F L 72 18 119/55 L 97 04/12/18 12:00 97.9 F 73 18 110/61 92 L 04/12/18 10:36 110/62 04/12/18 10:23 102/59 L 04/12/18 10:21 74 04/12/18 09:06 106/58 L 04/12/18 08:47 97.9 F 117 H 19 106/58 L 92 L Weight Admit Weight 72.631 kg Weight 77.02 kg I&O: 04/11/18 04/12/18 04/13/18 06:59 06:59 06:59 Intake Total 1305 2070 Output Total 3 Balance 1302 0 Result Diagrams: 04/12/18 04:50 04/12/18 04:50 <Radha Arias - Last Filed: 04/12/18 19:17> Phys Exam - Physical Examination Constitutional: NAD HEENT: moist MMs Respiratory: wheezing present, clear to auscultation bilateral Cardiovascular: RRR, no significant murmur Gastrointestinal: soft, non-tender distended Musculoskeletal: edema present Neurological: moves all 4 limbs Psychiatric: normal affect Skin: no rash <Margarito Foley - Last Filed: 04/12/18 08:20> Dx/Plan (1) ANDREAS (acute kidney injury) Code(s): N17.9 - ACUTE KIDNEY FAILURE, UNSPECIFIED Status: Acute (2) CKD (chronic kidney disease) Code(s): N18.9 - CHRONIC KIDNEY DISEASE, UNSPECIFIED Status: Acute (3) HTN (hypertension) Code(s): I10 - ESSENTIAL (PRIMARY) HYPERTENSION Status: Acute (4) Hyperkalemia Code(s): E87.5 - HYPERKALEMIA Status: Acute (5) Hyponatremia Code(s): E87.1 - HYPO-OSMOLALITY AND HYPONATREMIA Status: Acute (6) Hypovolemia Code(s): E86.1 - HYPOVOLEMIA Status: Acute (7) Sepsis Code(s): A41.9 - SEPSIS, UNSPECIFIED ORGANISM Status: Acute Qualifiers: Sepsis type: Streptococcus group A Qualified Code(s): A40.0 - Sepsis due to streptococcus, group A (8) UTI (urinary tract infection) Status: Acute - Plan Plan: Sepsis 2/2 UTI - tachycardia, tachypnea -abdominal u/s not suspicious for SBP - lactic acidosis resolved - s/p 2.5 L fluid resuscitation. DC IVF - given vanc/zosyn in [place] ED (04/09) - transition to cefdinir PO for 7 days Atrial dysrrhythmia - cardiology consulted, interrogating pacemaker, switch to Vpaced - echo when stable outpatient, cont metoprolol - medical management appreciate EP recs Hypovolemia, resolved - monitor, +1500 ml in 24 hrs, DC fluids h/o HFpEF - monitor for fluid overload - echo when stable, cont metoprolol ANDREAS on CKD - Cr 4.3 on admission (2.8 on 02/06), down trending, near baseline - monitor on BMP for improvement - continue lasix on DC - caution with nephrotoxic meds Hyperkalemia, resolved - hold home spironolactone, ordered kayexalate - no EKG changes - monitor Hyponatremia - at baseline during previous admissions - am BMP Normocytic anemia - Hgb 10.9 - on iron supplements at home Cirrhosis s/p treatment for Hep C - history of HCC - gets weekly paracentesis on Fridays in [place] - INR 1.4 IDDM2 - accuchecks, SSI - On and lantus 15 qam at home HTN - on metoprolol at home. patient tachycardic, will continue Diet: CC Ppx: SCDs Code: FULL Dispo: transition to PO abx, monitor fluid status, await specialist recs for further mgmt/DC planning <Margarito Foley - Last Filed: 04/12/18 08:20> Attending Addendum - Attending Addendum Date/Time: 04/12/18 1016 I personally evaluated the patient and discussed the management with Dr. Foley. I agree with the History, Examination, Assessment and Plan documented above with any addition or exceptions noted below. The patient was short of breath this morning but is better during our visit. Cardiology, EP and nephro all seeing the patient. Creatinine slightly improved. Still with atrial tachycardia. <Radha Arias - Last Filed: 04/12/18 19:17>
[2018-04-12] MEDS ORDERED: Carvedilol 6.25 MG TAB PO SCH ×2 (08:00→10:15)
[2018-04-12] MEDS: Sodium Chloride 0.9% 1,000 ML IV SCH (09:04)
[2018-04-12] MEDS: Ferrous Sulfate 325 MG TAB PO SCH (09:06)
[2018-04-12] MEDS: Alogliptin 6.25 MG TAB PO SCH (09:06)
[2018-04-12] MEDS: Insulin Glargine 15 UNITS in Pre-Filled Syringe 1 EACH SC SCH (09:07)
[2018-04-12] MEDS ORDERED: Digoxin 0.5 MG/2 ML AMP SLOW IVP SCH (09:15)
--- NOTE | 2018-04-12 09:37 | PRG ---
DATE OF SERVICE: 04/12/2018 SUBJECTIVE: Mr. Ryan looks somewhat more short of breath. He has no chest pain. His heart rate is frequently in the 130s, it looks like atrial flutter with intermittent atrial fibri llation as well. OBJECTIVE: LUNGS: Clear, but the respiratory rate is slightly faster. CARDIAC: He is tachycardic. ABDOMEN: Soft, nontender. EXTREMITIES: There is moderate edema. ASSESSMENT: 1. Congestive heart failure, volume overload. 2. Atrial fibrillation and atrial flutter, rate not controlled. 3. Renal failure stage 4, estimated GFR is 18. PLAN: 1. Give him one single loading dose of digoxin intravenously. 2. Increase Coreg. 3. Give him one dose of furosemide. After we get his heart rate down, hopefully, we will diurese wi th better rate control, he will probably have a very poor cardiac output with his heart rate, chuy irizarry has a biventricular pacemaker in place.
[2018-04-12] MEDS: Cefdinir 300 MG CAP PO SCH (10:23)
[2018-04-12] MEDS ORDERED: Furosemide 20 MG/2 ML VIAL SLOW IVP SCH (13:00)
[2018-04-12 14:04] VITALS: BMI 27.3
--- NOTE | 2018-04-12 14:27 | PDOC.CTH ---
Cardiology Progress Note - Subjective EP progress note: Patient seen and evaluated. No new cardiac concerns or complaints today. Denies heart racing, palpitations, chest pain/pressure, dizziness, or passing out. No stroke like symptoms. - Objective Vital Signs Temp Pulse Resp BP BP Pulse Ox 04/12/18 12:00 97.9 F 73 18 110/61 92 L 04/12/18 10:36 110/62 04/12/18 10:23 102/59 L 04/12/18 10:21 74 04/12/18 09:06 106/58 L 04/12/18 08:47 97.9 F 117 H 19 106/58 L 92 L 04/12/18 04:00 97.6 F 92 16 106/62 92 L Admit Weight 160 lb 2 oz Weight 169 lb 12.8 oz 04/11/18 04/12/18 04/13/18 06:59 06:59 06:59 Intake Total 1305 2070 Output Total 3 Balance 1302 2070 - Physical Examination General/Neuro: alert & oriented x3, NAD Neck: carotid US brisk, no JVD present Lungs: CTA, unlabored respirations Heart: PMI normal, other: (irreg irreg) Abdomen: NT/ND, soft - Telemetry Telemetry Rhythm: AF - Labs Result Diagrams: 04/12/18 04:50 04/12/18 04:50 Troponin/CKMB CK-MB (CK-2) 5.3 ng/mL (0-6.6) 04/09/18 17:28 Troponin I 0.059 ng/mL (< 0.028) H 04/09/18 23:00 - Assessment/Plan 1. Atrial tachycardia 2. Atrial fibrillation, paroxysmal 3. Liver cirrhosis 4. Chronic renal insufficiency 5. Hyponatremia 6. Anemia of chronic disease 7. Sepsis 8. CHADS2-VASC: 2 ( age and hypertension). Poor candidate for oral anticoagulation with cirrhosis 9. Bi-V pacemaker, Medtronic 10. Heptatocellular carcinoma 12 leak EKG was ordered to better see his arrhythmia. ATP therapies were turned on yesterday which successfully converted him to sinus mechanism. He since then went back into ATach but below the detect rate programmed on his device. The MS was lowered to 133bpm and ATP immediately terminated his Atrial tachycardia and restored sinus rhythm. No further treatment changes today.
[2018-04-12] MEDS: Carvedilol 6.25 MG TAB PO SCH (17:42)
--- NOTE | 2018-04-12 18:21 | PRG ---
DATE OF SERVICE: 04/12/2018 SUBJECTIVE: Patient was seen and examined at bedside and overnight events noted. Patient denies any shortness of breath or chest pain or palpitation. No history of nausea or vomiting or diarrhea or f ever or chills or cramps. OBJECTIVE: GENERAL: This is a well-built male in no apparent distress. VITAL SIGNS: Temperature 97.5, pulse 72, respiratory rate 18, blood pressure 119/55. HEENT: Atraumatic, normocephalic. Oral mucosa is moist. NECK: Supple. CARDIOVASCULAR: S1, S2 heard. Rate and rhythm regular. RESPIRATORY: Clear to auscultation. GASTROINTESTINAL: Abdomen is soft. MUSCULOSKELETAL: No tenderness. No edema. DERMATOLOGIC: No skin rash. NEUROLOGIC: Alert and awake and oriented x3. No focal neurologic deficits. Moving all the extremiti es. PSYCHIATRIC: Mood and affect normal. LABORATORY DATA: Potassium is 4.0, BUN 55, creatinine is 3.4. ASSESSMENT AND PLAN: 1. Acute kidney injury on chronic kidney disease with improvement. 2. History of cirrhosis. 3. Edema, controlled. 4. Hypertension. 5. Anemia. Okay to stop IV fluids and we will monitor. Avoid nephrotoxins.
[2018-04-12] MEDS: Gabapentin 300 MG CAP PO SCH (21:10)
[2018-04-12] MEDS: Tamsulosin HCl 0.4 MG CAP PO SCH (21:11)
[2018-04-13 05:32] LABS: Anion Gap 13 mmol/L (10-20); BUN (Urea Nitrogen) 55 mg/dL (8.4-25.7); Calc. Creatinine Clearance 23 mL/min (70-130); Calcium 7.9 mg/dL (7.8-10.44); Carbon Dioxide 20 mmol/L (23-31); Chloride 105 mmol/L (98-107); Estimated GFR-MDRD 18; Glucose 111 mg/dL (80-115); Potassium 4.2 mmol/L (3.5-5.1); Sodium 134 mmol/L (136-145)
[2018-04-13 05:38] LABS: #Eosinphils 0.2 thou/uL (0.0-0.7); #Lymphocytes 0.4 thou/uL (1.20-3.40); #Monocytes 0.4 thou/uL (0.11-0.59); #Neutrophils 2.4 thou/uL (1.40-6.50); %Basophils 0.1 % (0.0-1.0); %Eosinophils 5.9 % (0.0-10.0); %Lymphocytes 12.1 % (21.0-51.0); %Monocytes 11.1 % (0.0-10.0); %Neutrophils 70.9 % (42.0-75.0); Hemoglobin 8.7 g/dL (14.0-18.0); Mean Corpuscular HGB CONC 30.7 g/dL (32.0-36.0); Mean Corpuscular Hemoglobin 26.4 pg (27.0-31.0); Mean Platelet Volume 9.8 fL (7.4-10.4); Platelet Count 74 thou/uL (130-400); RBC Distribution Width 16.8 % (11.5-14.5); White Blood Cell (WBC) Count 3.3 thou/uL (4.8-10.8)
--- NOTE | 2018-04-13 06:44 | PDOC.FM ---
- Subjective Subjective: Mr. Ryan is sitting up in bed eating breakfast, he reports his abdomen feeling tense and swelling in his LE. Denies SOB - Objective Vital Signs & Weight: Vital Signs (12 hours) Temp Pulse Resp BP Pulse Ox 04/13/18 04:00 98.5 F 82 16 91/60 92 L 04/12/18 23:48 92/51 L 92 L 04/12/18 20:09 92 L 04/12/18 19:52 98.4 F 71 14 91/52 L 92 L Weight Admit Weight 72.631 kg Weight 79.742 kg I&O: 04/11/18 04/12/18 04/13/18 06:59 06:59 06:59 Intake Total 1305 2070 1440 Output Total 3 500 Balance 1302 2070 940 Result Diagrams: 04/13/18 04:54 04/13/18 04:54 <Margarito Foley - Last Filed: 04/13/18 08:39> - Objective Vital Signs & Weight: Vital Signs (12 hours) Temp Pulse Resp BP BP Pulse Ox 04/13/18 16:44 102/62 04/13/18 15:37 98.0 F 119 H 20 102/62 93 L 04/13/18 12:01 98.0 F 100 16 115/66 96 04/13/18 08:16 109/99 H 04/13/18 08:15 98.9 F 122 H 18 109/66 92 L Weight Admit Weight 72.631 kg Weight 79.742 kg I&O: 04/12/18 04/13/18 04/14/18 06:59 06:59 06:59 Intake Total 2070 1440 1000 Output Total 500 200 Balance 2070 940 800 Result Diagrams: 04/13/18 04:54 04/13/18 04:54 <Radha Arias - Last Filed: 04/13/18 16:56> Phys Exam - Physical Examination Constitutional: NAD HEENT: moist MMs Neck: no JVD Respiratory: no wheezing Cardiovascular: RRR, no significant murmur Gastrointestinal: non-tender distended, +fluid wave Musculoskeletal: pulses present, edema present Neurological: moves all 4 limbs Lymphatic: no nodes Psychiatric: normal affect Skin: no rash <Margarito Foley - Last Filed: 04/13/18 08:39> Dx/Plan (1) ANDREAS (acute kidney injury) Code(s): N17.9 - ACUTE KIDNEY FAILURE, UNSPECIFIED Status: Acute (2) CKD (chronic kidney disease) Code(s): N18.9 - CHRONIC KIDNEY DISEASE, UNSPECIFIED Status: Acute (3) HTN (hypertension) Code(s): I10 - ESSENTIAL (PRIMARY) HYPERTENSION Status: Acute (4) Hyperkalemia Code(s): E87.5 - HYPERKALEMIA Status: Acute (5) Hyponatremia Code(s): E87.1 - HYPO-OSMOLALITY AND HYPONATREMIA Status: Acute (6) Hypovolemia Code(s): E86.1 - HYPOVOLEMIA Status: Acute (7) Sepsis Code(s): A41.9 - SEPSIS, UNSPECIFIED ORGANISM Status: Acute Qualifiers: Sepsis type: Streptococcus group A Qualified Code(s): A40.0 - Sepsis due to streptococcus, group A (8) UTI (urinary tract infection) Status: Acute - Plan Plan: Sepsis 2/2 UTI, resolved - tachycardia, tachypnea -abdominal u/s not suspicious for SBP - lactic acidosis resolved - s/p 2.5 L fluid resuscitation. DC IVF - given vanc/zosyn in [place] ED (04/09) - transition to cefdinir PO for 7 days Atrial dysrrhythmia - cardiology consulted, interrogated pacemaker, switch to Vpaced - echo LVEF 35-40% - beta blockade, not a candidate for ablation, appreciate EP/cardiology recs Hypovolemia, resolved - monitor, +1500 ml in 24 hrs, DC fluids h/o HFpEF - monitor for fluid overload - restart home lasix, s/p one dose IV lasix ANDREAS on CKD - Cr 4.3 on admission (2.8 on 02/06), down trending, near baseline - monitor on BMP for improvement - caution with nephrotoxic meds Hyperkalemia, resolved - hold home spironolactone, ordered kayexalate - no EKG changes - monitor Hyponatremia - at baseline during previous admissions - am BMP Normocytic anemia - Hgb 10.9 - on iron supplements at home Cirrhosis s/p treatment for Hep C - history of HCC - gets weekly paracentesis on Fridays in [place] - paracentesis today - INR 1.4 IDDM2 - accuchecks, SSI - On januvia and lantus 15 qam at home HTN - controlled Diet: CC Ppx: SCDs Code: FULL Dispo: PO abx, monitor fluid status, await specialist recs for further mgmt/DC planning, possibly home today <Margarito Foley - Last Filed: 04/13/18 08:39> Attending Addendum - Attending Addendum Date/Time: 04/13/18 1055 I personally evaluated the patient and discussed the management with Dr. Foley. I agree with the History, Examination, Assessment and Plan documented above with any addition or exceptions noted below. Patient is doing better from a cardiac standpoint. Appreciate EP and cardiology recs. Pt states he is having trouble breathing because his abdomen is full. Today is his usual paracentesis day in [place]. We will plan for paracentesis this afternoon and likely d/c after this if stable. <Radha Arias - Last Filed: 04/13/18 16:56>
[2018-04-13] MEDS: Carvedilol 6.25 MG TAB PO SCH ×2 (08:16→16:44)
[2018-04-13] MEDS: Furosemide 40 MG TAB PO SCH ×2 (08:19→15:00)
[2018-04-13] MEDS: Insulin Glargine 15 UNITS in Pre-Filled Syringe 1 EACH SC SCH (08:19)
[2018-04-13] MEDS: Ferrous Sulfate 325 MG TAB PO SCH (08:19)
[2018-04-13] MEDS: Alogliptin 6.25 MG TAB PO SCH (08:19)
[2018-04-13] MEDS: Cefdinir 300 MG CAP PO SCH (08:19)
--- NOTE | 2018-04-13 08:48 | PRG ---
DATE OF SERVICE: 04/13/2018 HISTORY: Mr. Ryan is doing well, no complaints other than his ascites is worse and he would like t o have that drained. No chest pain, no chest tightness. PHYSICAL EXAMINATION: VITAL SIGNS: His blood pressure earlier was 91/60, most recently 109/99, pulse is 70, it is paced. LUNGS: Clear. CARDIAC: Normal S1, normal S2. ABDOMEN: Ascites. EXTREMITIES: Mild edema. ASSESSMENT: 1. Congestive heart failure, ejection fraction 30-35%. 2. Previous biventricular pacemaker insertion. 3. Atrial arrhythmias, not a candidate for anticoagulation as his INR is elevated even off anticoagu lation at 1.5. 4. Also, he has cirrhosis and some history of noncompliance. PLAN: 1. The patient is on Coreg 12.5 mg twice daily. 2. Digoxin 0.125 mg Monday, Monday, Monday only. 3. 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 4. The patient is not a candidate for anticoagulation in view of the above listed findings. The risk of bleeding would be extremely high. The patient states his cardiologists are in [place]. Pacemaker was programmed to try to avoid atrial sensing, ventricular pacing which was happening intermittently . I was trying to block the AV node enough to avoid 2:1 atrial tachycardia conduction. This strateg y is working at this point. Long-term prognosis is guarded.
--- NOTE | 2018-04-13 12:03 | PDOC.CTH ---
Cardiology Progress Note - Subjective EP progress Note: Patient seen and evaluated. No new cardiac complaints or issues today. Feeling better now that he is in sinus rhythm. 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 Atrial tachycardia 2. Atrial fibrillation, paroxysmal 3. Liver cirrhosis 4. Chronic renal insufficiency 5. Hyponatremia 6. Anemia of chronic disease 7. Sepsis 8. CHADS2-VASC: 2 ( age and hypertension). Poor candidate for oral anticoagulation with cirrhosis 9. Bi-V pacemaker, [employer] 10. Heptatocellular carcinoma ATP therapies were turned on and the MS was lowered to 133bpm and ATP immediately terminated his Atrial tachycardia and restored sinus rhythm. Atrial arrhythmias highly responsive to ATP therapies. Now in SR. Stable from EP perspective. Signing off. Follow up appt with BRISA Virgen entered into DC planning.
[2018-04-13 12:11] VITALS: TEMP 98
[2018-04-13] MEDS ORDERED: Lidocaine 1% (PF) 30 ML VIAL ONE (13:48)
[2018-04-13 15:39] VITALS: BP 102/62
--- NOTE | 2018-04-13 18:16 | PRG ---
DATE OF SERVICE: 04/13/2018 SUBJECTIVE: Patient was seen and examined at bedside and overnight events noted. Patient denies any shortness of breath or chest pain or palpitation. No history of nausea or vomiting or diarrhea or f ever or chills or cramps. OBJECTIVE: GENERAL: This is a well-built male in no apparent distress. VITAL SIGNS: Temperature , blood pressure 102/62. HEENT: Atraumatic, normocephalic. Oral mucosa is moist. NECK: Supple. CARDIOVASCULAR: S1, S2 heard. Rate and rhythm regular. RESPIRATORY: Clear to auscultation. GASTROINTESTINAL: Abdomen is soft. MUSCULOSKELETAL: No tenderness. No edema. DERMATOLOGIC: No skin rash. NEUROLOGIC: Alert and awake and oriented x3. No focal neurologic deficits. Moving all the extremiti es. PSYCHIATRIC: Mood and affect normal. LABORATORY DATA: Potassium is 4.0, BUN 55, creatinine 3.3. ASSESSMENT AND PLAN: 1. Acute kidney injury on chronic kidney disease stage 4, stable creatinine. 2. Edema, controlled. 3. Hypertension. 4. History of cirrhosis and anemia. 5. We will monitor. Avoid nephrotoxins.
--- NOTE | 2018-04-13 23:19 | DIS-2 ---
DATE OF ADMISSION: 04/09/2018 DATE OF DISCHARGE: 04/13/2018 RESIDENT: Dr. Margarito Foley. ADMITTING ATTENDING: Dr. Mari Guerrero. DISCHARGE ATTENDING: Dr. Radha Arias. CONSULTATIONS: 1. Cardiology, Dr. Haim Argueta. 2. Electrophysiology, Dr. Julio Cesar Pacheco. PROCEDURES: 1. Abdominal ultrasound. Impression: Bilateral renal cortical thinning. No evidence of hydronephrosis, no definite sonographic evidence of cholecystitis, nodularity of the liver compatible with cirrhotic change, evidence of small amounts of ascites in the abdomen, small right-sided pleural effusion suspected. 2. Echocardiography significant for left ventricular ejection fraction visually estimated at 30%-35%. 3. Paracenteses. Patient was consented for paracentesis procedure for therapeutic paracentesis secondary to ascites produced by liver failure. Patient gets therapeutic paracentesis weekly on Fridays as an outpatient in [place]. Determined to be needed to be done while in inpatient care. Patient consented to procedure, risks, and benefits were explained. Sterile field was prepped and draped in the usual fashion. Paracentesis kit was opened. Proper anesthesia was applied. Puncture was made through the skin. Paracentesis catheter was introduced to the skin, needle retracted. Tubing attached to the catheter and pressure bottles. Approximately 5 liters of ascitic fluid was drained from the abdomen and catheter removed. A sterile dressing applied. Patient tolerated the procedure well. Repeat sonogram after procedure revealed minimal fluid left behind. PRIMARY DIAGNOSIS: Sepsis secondary to urinary tract infection, resolved. SECONDARY DIAGNOSES: 1. Atrial dysrhythmia. 2. Hypokalemia. 3. History of heart failure with preserved ejection fraction. 4. Acute kidney injury on chronic kidney disease. 5. Hyperkalemia. 6. Hyponatremia. 7. Normocytic anemia. 8. Cirrhosis, status post treatment for hepatitis C. 9. Insulin-dependent diabetes mellitus type 2. 10. Hypertension. DISCHARGE MEDICATIONS: 1. Januvia 25 mg p.o. daily. 2. Ferrous sulfate 324 mg p.o. daily. 3. Cardura 2 mg p.o. at bedtime. 4. Lactulose 30 mL p.o. t.i.d. 5. Gabapentin 300 mg p.o. at bedtime. 6. Pantoprazole 40 mg p.o. at bedtime. 7. Furosemide 40 mg p.o. daily. 8. Spironolactone 50 mg p.o. daily. 9. Lantus 15 units subcu q.a.m. 10. Furosemide 40 mg p.o. b.i.d. 11. Coreg 12.5 mg p.o. b.i.d. with meals. 12. Omnicef 300 mg p.o. daily for 4 days. 13. Digoxin 0.125 mg p.o. on Monday, Monday, and Monday. DISCONTINUED MEDICATION: Metoprolol 25 mg p.o. b.i.d. HISTORY OF PRESENT ILLNESS AND HOSPITAL COURSE: Mr. Ryan was transferred from [facility] after being seen by Dr. Arias in clinic for reports that he was feeling bad all over the previous day. When he was having his paracentesis in [place], he was noted to have tachycardia and advised to go to the emergency department. He denied to go to the emergency department at that time and drove back to [facility] where he [facility]. He came back in the clinic at this time saying that he was feeling worse and transferred to higher level of care. In the ED, he received 2.5 liter bolus, vancomycin and Zosyn. UA was positive for UTI. Started on Rocephin. The patient was deemed to be adequately fluid resuscitated, but remained tachycardic. Cardiology was consulted at this time. Patient noted to have pacemaker. EP was consulted at that time. EP, Dr. Pacheco made adjustments on the pacemaker to ventricularly paced rhythm, atrial dysrhythmia resolved. Dr. Argueta optimizes patient's medicines including beta blockade and digoxin. Atrial dysrhythmia was resolved. The patient was resumed to be stable transitioned to p.o. antibiotics per sensitivities. On last day of hospital stay, patient had reached the time for paracentesis. Procedure was done in the hospital setting. Patient tolerated procedure well, deemed stable for discharge at that time. DISPOSITION: Guarded. DISCHARGE INSTRUCTIONS: 1. Location: Home. 2. Diet: Heart healthy/diabetic fluid restricted. 3. Activity: As tolerated. 4. Follow up with PCP, Dr. Arias in 7 days. 5. Tractor Trailer Technician in [place] in the next 2-[address] Li in 7 days as well. [facility]
[2018-04-16] MEDS ORDERED: Digoxin 0.125 MG TAB PO SCH (09:00)
--- NOTE | 2018-04-18 08:06 | EKG ---
Test Reason : Blood Pressure : / mmHG Vent. Rate : 104 BPM Atrial Rate : 104 BPM P-R Int : 000 ms QRS Dur : 128 ms QT Int : 374 ms P-R-T Axes : 000 -40 141 degrees QTc Int : 491 ms Demand pacemaker; interpretation is based on intrinsic rhythm Probable Bi ventricular pacemaker with relatively narrow QRS Confirmed by DR. Hoang MARRERO ([id number]) on 04/18/2018 8:06:35 AM Referred By: ELIZABETH Confirmed By:DR. Hoang MARRERO
== END 2018-04-13 17:22 | disposition home or self-care (01) | DRG 871 ==
LOC: ERS 17:01 → ERHOLD 18:12 → 2NO 23:12
PROVIDERS: ADMIT Family Medicine; ATTEND Family Medicine
PROC: 0W9G3ZZ Drainage of Peritoneal Cavity, Percutaneous Approach (ICD-10-PCS; principal; 2018-04-13)
DX: A40.0 Sepsis due to streptococcus, group A (principal); K76.7 Hepatorenal syndrome; N17.9 Acute kidney failure, unspecified; N39.0 Urinary tract infection, site not specified; E87.1 Hypo-osmolality and hyponatremia; I42.9 Cardiomyopathy, unspecified; C22.0 Liver cell carcinoma; I47.1 Supraventricular tachycardia; I13.0 Hypertensive heart and chronic kidney disease with heart failure and stage 1 through stage 4 chronic kidney disease, or unspecified chronic kidney disease; I50.32 Chronic diastolic (congestive) heart failure; N18.4 Chronic kidney disease, stage 4 (severe); R18.8 Other ascites; B19.20 Unspecified viral hepatitis C without hepatic coma; K74.69 Other cirrhosis of liver; E87.5 Hyperkalemia; E11.22 Type 2 diabetes mellitus with diabetic chronic kidney disease; I48.0 Paroxysmal atrial fibrillation; Z95.0 Presence of cardiac pacemaker; D63.8 Anemia in other chronic diseases classified elsewhere; E86.1 Hypovolemia; Z87.891 Personal history of nicotine dependence; Z91.14 Patient's other noncompliance with medication regimen; Z86.73 Personal history of transient ischemic attack (TIA), and cerebral infarction without residual deficits; Z79.4 Long term (current) use of insulin
CPT/HCPCS: 36415; 36416; 76700; 80048; 82728; 83540; 83550; 83605; 84145; 85025; 85610; 85730; 93005; 93010; 93306; 96361; 96374; J0696; J1160; J1940; J2001; J2405; J2916; J7050

== ENCOUNTER 2019-02-20 13:24 | Emergency (ER) | payer MEDICARE, OTHER | END 2019-02-20 14:23 | disposition left against medical advice (07) | LOC: ERS 13:24 | DX: Z53.21 Procedure and treatment not carried out due to patient leaving prior to being seen by health care provider (principal) ==